=== PATIENT | female | born 1990 | race Hispanic/Latino ===

== ENCOUNTER 2020-01-15 17:51 | Emergency (ER) | payer SELFPAY ==
[2020-01-15 19:00] LABS: Urine Blood 3+ (NEG); Urine Glucose NEGATIVE (NEG); Urine Protein TRACE (NEG)
[2020-01-15 19:39] LABS: Absolute Lymphocytes (CBC) 2.7 K/uL (0.7-4.9); Basophils % 0.7 % (0-1.3); Lymphocytes % 25.5 % (15.3-44.8); MPV 8.9 fL (7.6-11.3); RBC Red Blood Cell Count 3.93 M/uL (3.86-4.86)
--- NOTE | 2020-01-15 20:42 | ER ---
Nurse's Notes [facility] Name: Colleen Harden Age: 29 yrs Sex: Female : 1990 Arrival Date: 01/15/2020 Time: 17:53 Bed 14 Private MD: Diagnosis: Abnormal uterine and vaginal bleeding, unspecified Presentation: 01/14 18:08 Chief complaint: Patient states: has been having vaginal bleeding for 2 months, has not iw seen a doctor, also has pain and clots. Coronavirus screen: At this time, the client does not indicate any symptoms associated with coronavirus-19. Ebola Screen: Patient negative for fever greater than or equal to 101.5 degrees Fahrenheit, and additional compatible Ebola Virus Disease symptoms Patient denies exposure to infectious person. Patient denies travel to an Ebola-affected area in the 21 days before illness onset. No symptoms or risks identified at this time. Initial Sepsis Screen: Does the patient meet any 2 criteria? No. Patient's initial sepsis screen is negative. Does the patient have a suspected source of infection? No. Patient's initial sepsis screen is negative. Risk Assessment: Do you want to hurt yourself or someone else? Patient reports no desire to harm self or others. Onset of symptoms was November 2019. 18:08 Method Of Arrival: Ambulatory iw 18:08 Acuity: KEV 3 iw Historical: - Allergies: 18:10 No Known Allergies; iw - Home Meds: 18:10 None [Active]; iw - PMHx: 18:10 None; iw - PSHx: 18:10 ; iw - Immunization history:: Adult Immunizations. - Social history:: Smoking status: . Screenin:49 Abuse screen: Denies threats or abuse. Nutritional screening: No deficits noted. tw2 Tuberculosis screening: No symptoms or risk factors identified. Fall Risk None identified. Assessment: 18:10 General: Appears in no apparent distress. Behavior is calm, cooperative, appropriate tw2 for age. Pain: Denies pain. Neuro: Level of Consciousness is awake, alert, obeys commands, Oriented to person, place, time, situation. Cardiovascular: Heart tones S1 S2 Patient's skin is warm and dry. Respiratory: Airway is patent Respiratory effort is even, unlabored, Respiratory pattern is regular, symmetrical, Breath sounds are clear bilaterally. GI: No signs and/or symptoms were reported involving the gastrointestinal system. Abdomen is flat, non-distended, Bowel sounds present X 4 quads. : Urine is blood tinged, Reports vaginal bleeding that is. EENT: No signs and/or symptoms were reported regarding the EENT system. Derm: No signs and/or symptoms reported regarding the dermatologic system. Musculoskeletal: Range of motion: intact in all extremities. 19:16 General: Appears in no apparent distress. Behavior is calm, cooperative, appropriate ea for age. Pain: Denies pain. Neuro: Level of Consciousness is awake, alert, obeys commands, Oriented to person, place, time, situation. Cardiovascular: Patient's skin is warm and dry. Respiratory: Airway is patent Respiratory effort is even, unlabored, Respiratory pattern is regular, symmetrical. : Reports vaginal bleeding that is since November. It has been light but last few days it became heavy. Derm: Skin is pink, warm \T\ dry. Vital Signs: 18:08 BP 121 / 67; Pulse 71; Resp 16; Temp 98.6; Pulse Ox 100% on R/A; Pain 8/10; iw 19:18 BP 101 / 78; Pulse 67; Resp 18; Pulse Ox 100% on R/A; ea 20:30 BP 120 / 60; Pulse 70; Resp 18; Pulse Ox 98% ; ea ED Course: 17:53 Patient arrived in ED. as 18:08 Grover Cadena PA is PHCP. [facility] 18:08 Tereso Toribio MD is Attending Physician. [facility] 18:10 Triage completed. iw 18:10 Arm band placed on. iw 18:25 Jessica De Luna RN is Primary Nurse. tw2 18:49 Inserted saline lock: 22 gauge in left antecubital area, using aseptic technique. Blood tw2 collected. 18:56 Placed in gown. Bed in low position. Call light in reach. tw2 19:05 Report given to VICTORIA Calzada. tw2 20:40 Assist provider with pelvic exam: Set up pelvic tray. Performed by Grover AVENDANO ea Patient tolerated well. 20:45 IV discontinued, intact, bleeding controlled, No redness/swelling at site. Pressure ea dressing applied. Administered Medications: No medications were administered Outcome: 20:41 Discharge ordered by . hortencia 20:50 Discharged to home ambulatory, with family. ea 20:50 Condition: stable 20:50 Discharge instructions given to patient, Instructed on discharge instructions, follow up and referral plans. medication usage, Demonstrated understanding of instructions, follow-up care. 20:52 Patient left the ED. ea Signatures: Grover Cadena PA PA jmm Martinez, Amelia as Williams, Irene, RN RN iw Jessica De Luna RN RN tw Sherry Scruggs RN RN ea
--- NOTE | 2020-01-15 20:42 | EDPHYS ---
Physician Documentation [facility] Name: Colleen Harden Age: 29 yrs Sex: Female : 1990 Arrival Date: 01/15/2020 Time: 17:53 Bed 14 Private MD: ED Physician Tereso Toribio HPI: 01/14 18:32 This 29 yrs old Female presents to ER via Ambulatory with complaints of jmm Vaginal Bleeding. 18:32 The patient presents with vaginal bleeding that is moderate. Onset: The jmm symptoms/episode began/occurred 2 month(s) ago. Modifying factors: The symptoms are alleviated by nothing, the symptoms are aggravated by nothing. Associated signs and symptoms: Pertinent positives: vaginal bleeding. Historical: - Allergies: 18:10 No Known Allergies; iw - Home Meds: 18:10 None [Active]; iw - PMHx: 18:10 None; iw - PSHx: 18:10 ; iw - Immunization history:: Adult Immunizations. - Social history:: Smoking status: . ROS: 18:32 Constitutional: Negative for fever, chills, and weight loss, Cardiovascular: Negative jmm for chest pain, palpitations, and edema, Respiratory: Negative for shortness of breath, cough, wheezing, and pleuritic chest pain, Abdomen/GI: Negative for abdominal pain, nausea, vomiting, diarrhea, and constipation. 18:32 : Positive for vaginal bleeding. 18:32 All other systems are negative. Exam: 18:32 Constitutional: This is a well developed, well nourished patient who is awake, alert, jmm and in no acute distress. Head/Face: atraumatic. Eyes: EOMI, no conjunctival erythema appreciated ENT: Moist Mucus Membranes Neck: Trachea midline, Supple Chest/axilla: Normal chest wall appearance and motion. Cardiovascular: Regular rate and rhythm. No edema appreciated Respiratory: Normal respirations, no respiratory distress appreciated Abdomen/GI: Non distended, soft Back: Normal ROM Skin: General appearance color normal MS/ Extremity: Moves all extremities, no obvious deformities appreciated, no edema noted to the lower extremities Neuro: Awake and alert, normal gait Psych: Behavior is normal, Mood is normal, Patient is cooperative and pleasant 20:39 : Pelvic Exam: External exam: is normal, Speculum exam: mild bleeding. jmm Vital Signs: 18:08 BP 121 / 67; Pulse 71; Resp 16; Temp 98.6; Pulse Ox 100% on R/A; Pain 8/10; iw 19:18 BP 101 / 78; Pulse 67; Resp 18; Pulse Ox 100% on R/A; ea 20:30 BP 120 / 60; Pulse 70; Resp 18; Pulse Ox 98% ; ea MDM: 18:32 Patient medically screened. [facility] 20:39 Data reviewed: vital signs, EMS record. Counseling: I had a detailed discussion with [facility] the patient and/or guardian regarding: the historical points, exam findings, and any diagnostic results supporting the discharge/admit diagnosis, lab results, the need for outpatient follow up, to return to the emergency department if symptoms worsen or persist or if there are any questions or concerns that arise at home. ED course: Patient advised to follow up with [facility] for further evaluation. H/H still above transfusable limits. Pelvic exam revealed mild bleeding. Bleeding has been ongoing for 2 months. I do not suspect an acute process at this time. Patient is otherwise given strict return precautions. Qm Consultant was used. Patient understood. 01/14 18:37 Order name: Urine Dipstick--Ancillary (enter results); Complete Time: 19:02 [facility] 01/14 18:37 Order name: Urine --Ancillary (enter results); Complete Time: 19:02 [facility] 01/14 18:12 Order name: Urine Dipstick-Ancillary (obtain specimen); Complete Time: 18:34 [facility] 01/14 18:12 Order name: Urine Test (obtain specimen); Complete Time: 18:34 [facility] 01/14 18:40 Order name: CBC with Diff [facility] 01/14 18:40 Order name: CBC with Automated Diff; Complete Time: 19:51 [facility] 01/14 18:40 Order name: Pelvic Exam Setup; Complete Time: 18:56 [facility] 01/14 18:43 Order name: IV Start; Complete Time: 18:49 tw2 01/14 19:27 Order name: Labs - recollect needed; Complete Time: 19:34 sg Administered Medications: No medications were administered Disposition: 01/15 07:36 Co-signature as Attending Physician, Tereso Toribio MD. rn Disposition: 01/15/20 20:41 Discharged to Home. Impression: Abnormal uterine and vaginal bleeding, unspecified. - Condition is Stable. - Discharge Instructions: Abnormal Uterine Bleeding. - Medication Reconciliation Form, Thank You Letter, Antibiotic Education, Prescription Opioid Use form. - Follow up: Private Physician; When: 2 - 3 days; Reason: Recheck today's complaints, Continuance of care, Re-evaluation by your physician. Signatures: Dispatcher [employer] EDAlejandro Carrillo, RN RN Grover Estrada PA PA jmm Williams, Irene RN Tereso Paul MD MD rn Wise, Tara, RN RN 2 Sherry Scruggs RN RN ea Corrections: (The following items were deleted from the chart) 01/14 20:52 20:41 01/15/2020 20:41 Discharged to Home. Impression: Abnormal uterine and vaginal ea bleeding, unspecified. Condition is Stable. Forms are Medication Reconciliation Form, Thank You Letter, Antibiotic Education, Prescription Opioid Use. Follow up: Private Physician; When: 2 - 3 days; Reason: Recheck today's complaints, Continuance of care, Re-evaluation by your physician. hortencia
[2020-01-15 21:05] VITALS: TEMP 98.6
[2020-01-15 21:06] VITALS: BP 120/60; O2SAT 98
== END 2020-01-15 20:52 | disposition home or self-care (01) ==
LOC: ER 17:51
DX: N93.9 Abnormal uterine and vaginal bleeding, unspecified (principal)
CPT/HCPCS: 36415; 81003; 81025; 85025; 99283